=== PATIENT | female | born 1950 | race Two or more races ===

== ENCOUNTER 2024-06-30 15:17 | Emergency (ER) | payer MEDICAID, SELFPAY ==
--- NOTE | 2024-06-30 16:36 | PC.NURSE ---
WAS CALLED AND NO ANSWER.
--- NOTE | 2024-06-30 16:36 | PC.NURSE ---
Pt did not answer when name was called and was not found outside.
--- NOTE | 2024-06-30 20:02 | PC.NURSE ---
NO ANSWER AT ER LOBBY OR OUTSIDE ER TO BE TRIAGE.
== END 2024-06-30 20:03 | disposition left against medical advice (07) ==
PROVIDERS: Emergency Provider Family Medicine
DX: Z53.21 Procedure and treatment not carried out due to patient leaving prior to being seen by health care provider (principal)